=== PATIENT | female | born 1985 | race Caucasian/White ===

== ENCOUNTER 2017-09-05 18:20 | Inpatient (IN) ==
[2017-09-05] MEDS ORDERED: Ondansetron 4 MG/2 ML VIAL IVP PRN (19:19)
[2017-09-05] MEDS ORDERED: Famotidine 20 MG/2 ML VIAL IVP PRN (19:19)
[2017-09-05] MEDS ORDERED: Naloxone 0.4 MG/ML INJ IVP PRN (19:19)
[2017-09-05] MEDS ORDERED: Penicillin G Potassium 5,000,000 UNIT in 0.9 % Sodium Chloride Mini Bag 100 ML IVPB ONE (19:19)
--- NOTE | 2017-09-05 19:26 | OB/GYN History & Physical ---
Date of Encounter: 09/05/17 Time of Encounter: 19:23 Assessment and Plan (1) 40 weeks gestation of Current visit: Yes Status: Acute admitted for SROM (2) complicated by subutex maintenance, antepartum Current visit: Yes Status: Acute continue prescribed dose History of Present Illness Chief complaint: SROM HPI: Ms. Asif is a 31 year old female at 40w1d presents to labor and delivery with complaints of SROM. Patient reports water broke around 1745. Patient states she was 4cm in office today. Patient denies contractions or VB. Patient reports +FM. Blood type: O+ Rubella: Immune Hep B: Nonreactive Group B: Unknown-no order or results found for Past Med Surg Social Fam HX - Past Medical History Source: patient Medical history: no medical history, other Psychiatric history: anxiety - Past Surgical History Surgical History: no surgical history - Social History Smoking Status: Current every day smoker Smokeless Tobacco Status: No Alcohol use: none Drug use: none, other - Family History Mother Living Status: Still Living Hx Family Cardiac Disorders: No Hx Family Respiratory Disorders: No Hx Family Cancer: No Hx Family GI Disorders: No Hx Family Endocrine Disorder: No Hx Family Neuromuscular Disorders: No Hx Family Neurologic Disorders: No Hx Family HEENT Disorders: No Hx Family Autoimmune Disorders: No Obstetrical History - Pregnancies : 4 Para: 3 Term: 3 : 0 Ab's: 0 Livin Medications and Allergies Subutex 8 mg SL BID 08/30/17 [History] 3 Allergy/AdvReac Type Severity Reaction Status Date / Time ketorolac [From Toradol] Allergy Rash Verified 06/01/16 21:04 Review of System OB - Constitutional Constitutional ROS IM: no chills, no fever(s), no headache(s) - Cardiovascular Cardiovascular: no chest pain, no dyspnea, no edema, no palpitations, no syncope - Gastrointestinal Gastrointestinal: no abdominal pain, no constipation, no diarrhea, no heartburn , no nausea, no vomiting - Genitourinary Genitourinary: vaginal discharge (per HPI), no abnormal vaginal bleeding, no dysuria, no flank pain, no urinary frequency, no urinary urgency, no vaginal odor, no vaginal pruritis Exam - Constitutional Constitutional: well developed, well nourished, no acute distress, average body habitus - HEENT HEENT: Normocephaly, Mucus Membranes Moist - Neck Neck exam: full ROM, supple - Lungs Respiratory exam: CTAB - Cardiovascular Cardiovascular exam: RRR, +S1, +S2 - Abdomen Abdomen: Present: bowel sounds normal, gravid, non tender - Extremities Extremities exam: full ROM, normal inspection Deep Tendon Reflex Grade: 2+ Normal - Cervix Dilation: 4 (Per RN on admission) - Uterus Uterus exam: Present: normal size, normal contour - Comments Comments: Grossly ruptured. Moderate amount of clear fluid visualized, Nitrazine positive. FHR 120 bpm moderate variability +15x15 accels noted. No decels noted. Contractions 4-5 min apart. Cat. 1 tracing Results All other labs normal. - VTE Reasons for not Prescribing Prophylaxis: Treatment not Indicated - Low risk for VTE
[2017-09-05] MEDS ORDERED: Ringers Solution, Lactated 1,000 ML IVC SCH (19:30)
[2017-09-05 19:54] LABS: Basophils % 0.2 %; Eosinophils % 0.3 %; Hematocrit 32.6 % (35.3-44.9); Hemoglobin 11.4 g/dL (11.5-15.4); Immature Granulocytes % 0.7 % (0-4); Lymphocytes # 2.2 K/mcL (0.6-4.6); Lymphocytes % 18.7 %; Mean Corpuscular Hemoglobin 31.5 pg (28.0-33.3); Mean Corpuscular Volume 90.1 fL (83.0-100.0); Mean Platelet Volume 11.3 fL (9.4-12.4); Monocytes # 0.6 K/mcL (0.0-1.3); Monocytes % 5.1 %; Neutrophils # 8.8 K/mcL (1.6-8.9); Platelet Count 165 K/mcL (140-400); Red Blood Count 3.62 M/mcL (3.82-4.97); Red Cell Distribution Width 13.4 % (11.5-14.5)
[2017-09-05 19:59] LABS: Amphetamine Screen,Urine Negative ng/mL (Cutoff=1000); Barbiturate Screen,Urine Negative ng/mL (Cutoff=200); Benzodiazepines Screen,Urine Negative ng/mL (Cutoff=200); Cannabinoid Screen,Urine Negative ng/mL (Cutoff = 50); Cocaine Screen,Urine Negative ng/mL (Cutoff= 300); Opiate Screen,Urine Negative ng/mL (Cutoff=300); Phencyclidine Screen,Urine Negative ng/mL (Cutoff=25)
[2017-09-05] MEDS ORDERED: Penicillin G Potassium 2,500,000 UNIT in D5% in Water 100 ML IVPB SCH (20:00)
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
[2017-09-05] MEDS ORDERED: *HR* FentaNYL (PF) 100 MCG/2 ML VIAL ONE (20:29)
[2017-09-05] MEDS ORDERED: Lidocaine -MPF 1% 5 ML AMPUL ONE (20:29)
[2017-09-05] MEDS ORDERED: Bupivacaine-MPF 0.25% 10 ML VIAL ONE (20:29)
[2017-09-05] MEDS ORDERED: *HR* Ropivacaine/PF 0.2% 20 ML VIAL ONE (20:29)
[2017-09-05] MEDS ORDERED: Epidural Premix (fent/bupiv) 110 ML EP ONE (20:32)
--- NOTE | 2017-09-05 20:56 | Anesthesia Procedures ---
Date of Encounter: 09/05/17 Time of Encounter: 20:54 Procedures: Anesthesia - Epidural/Spinal Patient ID/Chart reviewed: Yes Patient examined: Yes OB Eval: Gestational age: 40 OB Eval: : 4 OB Eval: Hx Para: 2 OB Eval: Dilated at (cm): 5 OB Eval: Contractions: Non-stressed pattern Consent Obtained: Yes Supplemental Oxygen: None/Room Air Site Prep: Aseptic Technique, 0.5% Chlorhexidine/Alcohol Patient position: upright Local Anesthetic: Lidocaine 1% Amount of Local Anesthetic used: 3 Touhy Needle Gauge: 18 Touhy Needle Depth (cm): 5 Catheter Depth at Skin (cm): 12 Test Dose (1.5% Lido + Epi): Volume given (mls): 3 Test Dose Result: Negative Loading Dose: 0.25% Marcaine (mls): 5 Loading Dose: Fentanyl (mcg): 100 Loading Dose: Other: 3CC NSS Loading Dose Administered: Thru Touhy Needle Infusion Med: 0.125% Bupivacaine w/ 2 mcg/ml Fentanyl Infusion Rate (mls/hr): [address]: Tegaderm Interspace Used: L3-L4 Loss of Resistance (CHELSIE): Yes Blood: No CSF: No Paresthesia: No
--- NOTE | 2017-09-05 21:30 | OB Labor Progress Note ---
Date of Encounter: 09/05/17 Time of Encounter: 21:26 Labor Progress Note - Subjective Subjective: Patient resting comfortably with epidural in place. Discussed POC with patient. Patient denies any questions or concerns. - Cervix Cervix: 5.5/95/-1 - Heart Tones Heart Tones: 120 bpm moderate amount of variability +15x15 accels no decels noted. Cat. 1 tracing - [place]: 5-6 min apart - Interventions Interventions: SVE, ruptured a forebag moderate amount of clear fluid. IUPC placed without difficulty. - Plan Plan: Continue labor management anticipate
[2017-09-06] MEDS ORDERED: Oxytocin 20 units/ LR 1000 mL 20 UNIT/1,000 ML BAG IVC ONE ×2 (00:12→08:59)
[2017-09-06] MEDS: Penicillin G Potassium 2,500,000 UNIT in 0.9 % Sodium Chloride 100 ML IVPB SCH ×2 (00:58→05:05)
[2017-09-06] MEDS ORDERED: Epidural Premix (fent/bupiv) 110 ML EP ONE (03:11)
--- NOTE | 2017-09-06 06:53 | OB/GYN Procedure Note ---
Delivery - Delivery Date: 09/06/17 Provider: Celeste Lock Intrapartum events: none Delivery induction: none Delivery monitor: external FHT, internal uterine Anesthesia: epidural Quantitated Blood Loss: 50 - Infant (s) Infant A Delivery Date: 09/06/17 Infant Delivery Time: 06:24 Presentation: vertex Position: MANNY Gender: Female Viability: Viable Pounds: 6 Ounces: 13 Weight Gram: 3.08 kg at 1 minute: 9 at 5 mins: 9 Shoulder Dystocia: not encountered Specimens collected: cord blood Placenta: spontaneous, uterine exploration Cord: 3 umbilical vessels - Repair Episiotomy: none Laceration Description: None - Complications Delivery complications: none - Disposition Mom disposition: stable in LDR disposition: stable in LDR - Comments Comments: Called to LDR patient completed and . Under maternal effort patient spontaneously delivered a viable female infant over an intact perineum. No nuchal cord, shoulder dystocia or meconium was encountered. was placed on maternal abdomen. Cord was clamped and cut after pulsations ceased. Cord blood collected. Spontaneous delivery of placenta. Placenta intact. All counts correct. Both mother and infant stable in LDR for 2 hour recovery.
[2017-09-06] MEDS ORDERED: Acetaminophen 325 MG TABLET PO PRN (09:42)
[2017-09-06] MEDS ORDERED: Oxytocin 20 units/ LR 1000 mL 20 UNIT/1,000 ML BAG IVC SCH (09:42)
[2017-09-06] MEDS ORDERED: Measles/Mumps/Rubella Vacc 0.5 ML VIAL SQ PRN (09:42)
[2017-09-06] MEDS: Prenatal Vit/FA 1 EACH TABLET PO SCH (10:01)
[2017-09-06] MEDS: *HR* Buprenorphine HCl 8 MG TAB.SUBL SL SCH ×2 (10:01→21:05)
[2017-09-06] MEDS: Ibuprofen 600 MG TABLET PO PRN ×2 (11:27→19:36)
[2017-09-07] MEDS: Ibuprofen 600 MG TABLET PO PRN (03:21)
--- NOTE | 2017-09-07 08:02 | Discharge Summary ---
Date of Encounter: 09/07/17 Time of Encounter: 08:00 - Discharge Diagnosis (1) Vaginal delivery Priority: Primary Status: Acute Comments: S/P vaginal delivery day 1 Pain well controlled lochia light and without clots tolerating regular diet bottle feeding discharge to guest; on 5 day hold - Discharge Medications Prescriptions: Ibuprofen [Motrin] 600 mg PO Q6HR PRN #30 tablet PRN Reason: Cramping Docusate [Colace] 100 mg PO BID #30 capsule Home Medications: Subutex 8 mg SL BID 08/30/17 [History] Acetaminophen [Tylenol] 650 mg PO Q6HR PRN tablet 09/07/17 [Rx] Docusate [Colace] 100 mg PO BID #30 capsule 09/07/17 [Rx] Ibuprofen [Motrin] 600 mg PO Q6HR PRN #30 tablet 09/07/17 [Rx] Vit/FA 1 each PO DAILY tablet 09/07/17 [Rx] Allergies/Adverse Reactions: 3 Allergy/AdvReac Type Severity Reaction Status Date / Time ketorolac [From Toradol] AdvReac Rash Verified 09/06/17 06:39 Data Procedures and tests throughout hospitalization: Laboratory Tests 09/05/17 09/05/17 19:23 19:23 WBC 11.7 H RBC 3.62 L Hgb 11.4 L Hct 32.6 L MCV 90.1 MCH 31.5 MCHC 35.0 RDW 13.4 Plt Count 165 MPV 11.3 Immature Gran % 0.7 Seg Neutrophils % 75.0 Lymphocytes % 18.7 Monocytes % 5.1 Eosinophils % 0.3 Basophils % 0.2 Neutrophils # 8.8 Lymphocytes # 2.2 Monocytes # 0.6 Eosinophils # 0.0 Basophils # 0.0 Urine Opiates Screen Negative Ur Barbiturates Screen Negative Ur Phencyclidine Scrn Negative Ur Amphetamines Screen Negative U Benzodiazepines Scrn Negative Urine Cocaine Screen Negative U Marijuana (THC) Screen Negative Ur Drug Screen Interp See Below Date of admission: 09/05/17 19:17 Primary care physician: PCP NONE Consults: 09/06/17 09:42 Consult to Services Account Manager [CONS] Routine Reason for SW Consult: subutex Discharging clinician: Clarissa Archuleta Anticipated date of discharge: 09/07/17 - Patient Status Disposition: Home, Self-Care Condition: Good Functional capacity at discharge: independent ambulation Overall status at discharge: patient is progressing back to baseline - Discharge Instructions Follow Up With: NONE,PCP [Primary Care Provider] - Celeste Lock CNM [Non-Partnered Physician] - - Diet and Activity Activity: increase activity as tolerated Diet: regular diet Hospital Course Reason for admission: IUP at term Delivery: Episiotomy: none Laceration: none Other procedures: none complications: none Discharge diagnosis: IUP at term delivered [place] baby: female Time spent discussing smoking cessation with patient: 3 to 10 minutes Time Attestation: Total time spent providing and/or coordinating discharge services: Time Spent: Less than 30 minutes Exam - Constitutional Vitals: Temp Pulse Resp BP Pulse Ox 98.6 F 67 16 120/68 98 09/06/17 19:30 09/06/17 19:30 09/06/17 19:30 09/06/17 19:30 09/06/17 19:30 General appearance IM: cooperative, A&O X 3, pleasant - Respiratory Respiratory exam: Present: CTAB - Cardiovascular Cardiovascular exam IM: Present: RRR, +S1, +S2 - GI/Abdominal GI/Abdominal exam IM: normal bowel sounds, soft - Rectal Rectal exam: deferred - Uterine Tone: Firm Uterus Position: At Umbilicus, Midline
[2017-09-07] MEDS: Prenatal Vit/FA 1 EACH TABLET PO SCH (08:09)
[2017-09-07] MEDS: *HR* Buprenorphine HCl 8 MG TAB.SUBL SL SCH (08:09)
[2017-09-07 08:35] VITALS: BP 109/69
== END 2017-09-07 10:42 | disposition home or self-care (01) | DRG 542 ==
LOC: 1NENULAB 19:17 → 1NENUOBS 09-06 09:40
PROVIDERS: ADMIT Advanced Practice Midwife; ATTEND Advanced Practice Midwife

== ENCOUNTER 2018-10-29 13:51 | Observation (INO) ==
[2018-10-29 15:46] LABS: Bilirubin,Urine Negative (Negative); Blood,Urine Negative (Negative); Clarity,Urine Clear (Clear); Color,Urine Yellow (Yellow); Glucose,Urine (UA) Normal (Normal); Ketones,Urine Negative (Negative); Leukocyte Esterase,Urine Negative (Negative); Nitrite,Urine Negative (Negative); Protein,Urine Negative (Neg-Trace); Specific Gravity,Urine 1.019 (1.010-1.025); Urobilinogen,Urine Normal (Normal)
[2018-10-29 15:53] LABS: Amphetamine Screen,Urine Negative ng/mL (Cutoff=1000); Barbiturate Screen,Urine Negative ng/mL (Cutoff=200); Benzodiazepines Screen,Urine Negative ng/mL (Cutoff=200); Cannabinoid Screen,Urine Negative ng/mL (Cutoff = 50); Cocaine Screen,Urine Negative ng/mL (Cutoff= 300); Opiate Screen,Urine Negative ng/mL (Cutoff=300); Phencyclidine Screen,Urine Negative ng/mL (Cutoff=25)
[2018-10-29] MEDS ORDERED: Betamethasone Acet/SodPhos 30 MG/5 ML VIAL IM SCH (16:15)
[2018-10-29] MEDS ORDERED: Lidocaine -MPF 1% 2 ML VIAL ONE (16:21)
--- NOTE | 2018-10-29 16:27 | OB/GYN Progress Note ---
Date of Encounter: 10/29/18 Time of Encounter: 16:24 - Assessment and Plan (1) 32 weeks gestation of Current Visit: Yes Status: Acute Reactive NST Urinalysis normal UDS buprenorphine Advanced cervical dilation Betamethasone given x 1; repeat in 24 hours Magnesium sulfate 4g loading dose IV antibiotics - Ampicillin 2gram IV Accepted by Dr. Aguirre for transfer to [facility] Discharge via squad to transfer to [facility] per consult with Dr Celestin (2) NST (non-stress test) reactive Current Visit: Yes Status: Acute (3) Premature cervical dilation in third trimester Current Visit: Yes Status: Acute Subjective - Subjective Principal diagnosis: contractions Interval history: Ms Asif is a at 32 weeks and 0 days that presents to triage with c/o contractions that began last night during work and have continued throughout the day. She also c/o vaginal pressure and pain in the fronts of her thighs. She states positive movement. She denies headaches, vision changes, epigastric pain, leaking of fluid, vaginal discharge, and vaginal bleeding. This has been complicated by short interval spacing with her last delivery (vaginal) in September of 2017 and subutex use. She states she last used IV drugs "years ago". She began care late at 24 weeks gestation. She denies intercourse in the past 48 hours. She states she does not drink enough water. Antepartum ROS: movement normal, contractions, no loss of fluid, no vaginal bleeding Objective - Vital Signs Vital Signs: Intake and Output 10/29/18 10/29/18 10/29/18 07:59 15:59 23:59 Other: Weight 59.988 kg Patient Weight 10/29/18 23:59 Weight 59.988 kg - Exam FHR: auscultation normal, category 1 (Contractions every 2-10 minutes; Baseline 120-130 with moderate variability and 15 x 15 accels. No decels. ) Abdomen: Present: normal appearance, soft, gravid Uterus: Present: normal. Absent: firm, tenderness Cervical dilation: 3-4 Cervix effacement: 70 station: 0 and ballotable - Labs Labs: Abnormal lab results Ur Buprenorphine Scrn Positive ng/mL (Cutoff=5) H 10/29/18 14:23
[2018-10-29] MEDS ORDERED: Magnesium Sulfate 20 gm/500mL 20 GM/500 ML IV.SOLN IVC SCH (16:30)
[2018-10-29] MEDS ORDERED: Ringers Solution, Lactated 1,000 ML ONE (17:03)
[2018-10-29] MEDS ORDERED: Ampicillin 2 GM in 0.9 % Sodium Chloride Mini Bag 100 ML IVPB ONE (17:06)
[2018-10-29 17:12] LABS: Basophils % 0.3 %; Eosinophils # 0.1 K/mcL (0.0-0.6); Eosinophils % 0.8 %; Hematocrit 33.2 % (35.3-44.9); Hemoglobin 11.6 g/dL (11.5-15.4); Immature Granulocytes % 0.5 % (0-4); Lymphocytes % 18.3 %; Mean Corpuscular HGB Conc 34.9 g/dL (31.6-35.5); Mean Corpuscular Hemoglobin 31.4 pg (28.0-33.3); Mean Platelet Volume 10.9 fL (9.4-12.4); Monocytes # 0.7 K/mcL (0.0-1.3); Monocytes % 6.5 %; Neutrophils # 8.2 K/mcL (1.6-8.9); Platelet Count 141 K/mcL (140-400); Red Blood Count 3.69 M/mcL (3.82-4.97); Red Cell Distribution Width 12.5 % (11.5-14.5); Segmented Neutrophils % 73.6 %; White Blood Count 11.1 K/mcL (4.3-11.1)
== END 2018-10-29 18:15 | disposition critical access hospital (66) ==
LOC: 1NENULAB
PROVIDERS: ADMIT Registered Nurse; ATTEND Registered Nurse

== ENCOUNTER 2018-12-13 06:34 | Inpatient (IN) ==
[~2018-12-13 06:34] MED LIST: Famotidine 20 MG/2 ML VIAL IVP PRN; Metoclopramide 10 MG/2 ML VIAL IVP PRN; Naloxone 0.4 MG/ML INJ IVP PRN; Ringers Solution, Lactated 1,000 ML IVC SCH; Ringers Solution, Lactated 1,000 ML ONE
[2018-12-13 06:42] LABS: Basophils % 0.2 %; Eosinophils # 0.1 K/mcL (0.0-0.6); Eosinophils % 0.6 %; Immature Granulocytes % 0.4 % (0-4); Lymphocytes # 2.4 K/mcL (0.6-4.6); Lymphocytes % 18.1 %; Mean Corpuscular HGB Conc 33.3 g/dL (31.6-35.5); Mean Corpuscular Hemoglobin 31.1 pg (28.0-33.3); Mean Corpuscular Volume 93.3 fL (83.0-100.0); Mean Platelet Volume 11.3 fL (9.4-12.4); Monocytes # 0.8 K/mcL (0.0-1.3); Monocytes % 5.9 %; Neutrophils # 9.9 K/mcL (1.6-8.9); Nucleated Red Blood Cells 0.2 /100 WBC (0); Platelet Count 166 K/mcL (140-400); Red Blood Count 3.86 M/mcL (3.82-4.97); Red Cell Distribution Width 13.2 % (11.5-14.5); Segmented Neutrophils % 74.8 %; White Blood Count 13.2 K/mcL (4.3-11.1)
[2018-12-13] MEDS ORDERED: Epidural Premix (fent/bupiv) 110 ML EP ONE (06:52)
[2018-12-13] MEDS ORDERED: Epidural Premix (fent/bupiv) 110 ML EP SCH (07:00)
[2018-12-13] MEDS ORDERED: *HR* Ropivacaine/PF 0.5% 20 ML VIAL ONE (07:48)
[2018-12-13 08:30] LABS: Amphetamine Screen,Urine Negative ng/mL (Cutoff=1000); Barbiturate Screen,Urine Negative ng/mL (Cutoff=200); Benzodiazepines Screen,Urine Negative ng/mL (Cutoff=200); Cannabinoid Screen,Urine Negative ng/mL (Cutoff = 50); Cocaine Screen,Urine Negative ng/mL (Cutoff= 300); Opiate Screen,Urine Negative ng/mL (Cutoff=300); Phencyclidine Screen,Urine Negative ng/mL (Cutoff=25)
[2018-12-13] MEDS ORDERED: Oxytocin 20 units/ LR 1000 mL 20 UNIT/1,000 ML BAG IVC ONE (09:02)
[2018-12-13] MEDS ORDERED: *HR* Phenylephrine 10 MG/ML VIAL ONE (10:05)
[2018-12-13] MEDS ORDERED: Lidocaine/EPI 1:200k 2% PF 20 ML VIAL ONE (10:08)
[2018-12-13] MEDS ORDERED: Oxytocin 20 units/ LR 1000 mL 20 UNIT/1,000 ML BAG IVC SCH (12:38)
[2018-12-13] MEDS ORDERED: Measles/Mumps/Rubella Vacc 0.5 ML VIAL SQ PRN (12:38)
[2018-12-13] MEDS: Ibuprofen 600 MG TABLET PO PRN ×2 (13:12→21:37)
[2018-12-13] MEDS: *HR* Buprenorphine HCl 8 MG TAB.SUBL SL SCH (21:37)
[2018-12-14] MEDS: Acetaminophen 325 MG TABLET PO PRN ×2 (00:30→08:00)
[2018-12-14] MEDS: Ibuprofen 600 MG TABLET PO PRN (04:02)
[2018-12-14 06:39] LABS: Basophils % 0.3 %; Eosinophils # 0.1 K/mcL (0.0-0.6); Eosinophils % 0.8 %; Hematocrit 31.2 % (35.3-44.9); Immature Granulocytes % 0.5 % (0-4); Lymphocytes # 2.7 K/mcL (0.6-4.6); Lymphocytes % 27.1 %; Mean Corpuscular HGB Conc 33.3 g/dL (31.6-35.5); Mean Corpuscular Hemoglobin 31.3 pg (28.0-33.3); Mean Platelet Volume 10.8 fL (9.4-12.4); Monocytes # 0.7 K/mcL (0.0-1.3); Monocytes % 6.9 %; Neutrophils # 6.4 K/mcL (1.6-8.9); Platelet Count 147 K/mcL (140-400); Red Blood Count 3.32 M/mcL (3.82-4.97); Red Cell Distribution Width 13.2 % (11.5-14.5); Segmented Neutrophils % 64.4 %
[2018-12-14 06:40] LABS: Hemoglobin 10.4 g/dL (11.5-15.4)
[2018-12-14] MEDS: *HR* Buprenorphine HCl 8 MG TAB.SUBL SL SCH (08:00)
[2018-12-14 08:02] VITALS: BP 119/85
[2018-12-14] MEDS ORDERED: Prenatal Vit/FA 1 EACH TABLET PO SCH (09:00)
== END 2018-12-14 11:43 | disposition home or self-care (01) | DRG 560 ==
LOC: 1NENULAB → 1NENUOBS 12:39
PROVIDERS: ADMIT Registered Nurse; ATTEND Registered Nurse